=== PATIENT | female | born 1935 | race Caucasian/White ===

== ENCOUNTER 2021-02-05 14:17 | Inpatient (IN) | payer MEDICARE, MEDICAID ==
[~2021-02-05 14:17] MED LIST: Ventolin HFA Inhaler 60 PUFF INHALER ONE; cefTRIAXone\\ROCEPHIN 1 GM VIAL ONE; methylPREDNISolone Sod Succ/PF 125 MG/2 ML VIAL ONE
[2021-02-05] MEDS ORDERED: Azithromycin 500 MG VIAL ONE (15:59)
[2021-02-05] MEDS ORDERED: Senokot S 8.6-50 MG TAB PO PRN (17:08)
[2021-02-05 18:10] LABS: Troponin I Less than 0.010 ng/mL (< 0.028)
[2021-02-05 18:11] LABS: ALT (SGPT) 7 U/L (8-55); AST (SGOT) 18 U/L (5-34); Albumin 3.6 g/dL (3.4-4.8); Alkaline Phosphatase 58 U/L (40-110); Anion Gap 15 mmol/L (10-20); BUN (Urea Nitrogen) 11 mg/dL (9.8-20.1); Bilirubin, Total 0.9 mg/dL (0.2-1.2); Calc. Creatinine Clearance 0 mL/min (70-130); Calcium 9.5 mg/dL (7.8-10.44); Carbon Dioxide 33 mmol/L (23-31); Chloride 98 mmol/L (98-107); Globulin 3.9 g/dL (2.4-3.5); Glucose 132 mg/dL (83-110); Potassium 4.6 mmol/L (3.5-5.1); Protein, Total 7.5 g/dL (5.8-8.1); Sodium 141 mmol/L (136-145)
[2021-02-05 18:13] LABS: Lactic Acid 1.6 mmol/L (0.5-2.2)
[2021-02-05 18:16] LABS: Clarity Clear (Clear); Leukocyte 25 (Negative); Nitrite Negative (Negative); Protein, Urine (Dipstick) 30 mg/dl (Neg-Trace)
[2021-02-05 18:17] LABS: Bilirubin Negative (Negative); Blood, Urine 10 (Negative); Glucose, Urine (Dipstick) Normal (Negative); Ketone, Urine 15 mg/dL (Negative)
[2021-02-05 18:18] LABS: Bacteria/HPF Rare-Few HPF (None Seen); Mucous/LPF Rare LPF (<2+); Squamous Epithelial 0-3 HPF (0-3); Transitional Epithelial 0-3 HPF (None Seen); WBC/HPF 0-3 HPF (0-3)
[2021-02-05 18:24] LABS: Mean Corpuscular HGB CONC 31.1 g/dL (32.0-36.0); Mean Corpuscular Hemoglobin 29.6 pg (27.0-33.0); Mean Corpuscular Volume 95.3 fl (81.6-98.3); Platelet Count 159 10x3/uL (150-450); Red Blood Cell (RBC) Count 4.05 10x6/uL (3.90-5.03); White Blood Cell (WBC) Count 9.9 10x3/uL (3.5-10.5)
[2021-02-05 18:25] LABS: #Monocytes 0.9 10x3/uL (0.0-1.1); %Neutrophils 81.1 % (40.0-75.0); Mean Platelet Volume 9.7 fl (7.4-10.4); RBC Distribution Width 13.7 % (11.5-14.5)
[2021-02-05 18:26] LABS: %Basophils 0.4 % (0.0-2.0); %Lymphocytes 8.5 % (18.0-47.0); %Monocytes 9.5 % (0.0-10.0)
[2021-02-05 20:33] LABS: SARS-CoV-2 NAA Rapid Test Not Detected (NotDetected)
[2021-02-05] MEDS: Apixaban 5 MG TAB PO SCH (21:08)
[2021-02-05 23:19] VITALS: BMI 30.1
[2021-02-06] MEDS: Cepastat Lozenges 1 LOZ PO PRN ×2 (05:11→21:52)
[2021-02-06 07:20] LABS: #Monocytes 0.6 10x3/uL (0.0-1.1); #Neutrophils 9.3 10x3/uL (1.5-8.4); %Basophils 0.3 % (0.0-2.0); %Eosinophils 0.1 % (0.0-6.0); %Lymphocytes 10.7 % (18.0-47.0); %Neutrophils 82.8 % (40.0-75.0); Hemoglobin 11.4 g/dL (12.0-15.5); Mean Corpuscular HGB CONC 32.4 g/dL (32.0-36.0); Mean Corpuscular Hemoglobin 29.8 pg (27.0-33.0); Mean Corpuscular Volume 92.1 fl (81.6-98.3); Mean Platelet Volume 10.4 fl (7.4-10.4); Platelet Count 137 10x3/uL (150-450); RBC Distribution Width 13.9 % (11.5-14.5); Red Blood Cell (RBC) Count 3.82 10x6/uL (3.90-5.03); White Blood Cell (WBC) Count 11.2 10x3/uL (3.5-10.5)
[2021-02-06 07:48] LABS: ALT (SGPT) 10 U/L (8-55); Albumin 3.1 g/dL (3.4-4.8); Alkaline Phosphatase 49 U/L (40-110); Anion Gap 20 mmol/L (10-20); BUN (Urea Nitrogen) 13 mg/dL (9.8-20.1); Bilirubin, Total 0.5 mg/dL (0.2-1.2); Calc. Creatinine Clearance 71 mL/min (70-130); Calcium 9.3 mg/dL (7.8-10.44); Carbon Dioxide 21 mmol/L (23-31); Chloride 107 mmol/L (98-107); Globulin 3.8 g/dL (2.4-3.5); Glucose 114 mg/dL (83-110); Potassium 4.6 mmol/L (3.5-5.1); Protein, Total 6.9 g/dL (5.8-8.1); Sodium 143 mmol/L (136-145)
[2021-02-06 07:51] LABS: AST (SGOT) 23 U/L (5-34)
[2021-02-06] MEDS: Mometasone/Formoterol 200/5 60 PUFF INH SCH ×2 (08:23→19:50)
[2021-02-06] MEDS: Apixaban 5 MG TAB PO SCH (08:25)
[2021-02-06] MEDS: cefTRIAXone\\ROCEPHIN 1 GM in Sodium Chloride 0.9% 100 ML IVPB SCH (08:25)
[2021-02-06] MEDS: Acetaminophen 325 MG TAB PO PRN ×3 (08:28→21:56)
[2021-02-06] MEDS ORDERED: Non-Formulary Medication 1 EACH (Budesonide-Formoterol [Symbicort 160-4.5] 160 MG/4.5 MG A INH SCH (09:00)
[2021-02-06] MEDS: Azithromycin 500 MG in Sodium Chloride 0.9% 250 ML 250 ML IVPB SCH (12:01)
[2021-02-06] MEDS: ALPRAZolam 1 MG TAB PO PRN ×2 (12:01→21:51)
[2021-02-06] MEDS: Atorvastatin Calcium 40 MG TAB PO SCH (21:51)
[2021-02-06] MEDS: Metoprolol Tartrate 50 MG TAB PO SCH (21:51)
[2021-02-06] MEDS: metroNIDAZOLE 500 MG in Premix Bag 1 BAG IVPB SCH (21:52)
[2021-02-07] MEDS: metroNIDAZOLE 500 MG in Premix Bag 1 BAG IVPB SCH ×3 (05:36→22:00)
[2021-02-07] MEDS: Ondansetron PF 4 MG/2 ML Vial IVP PRN (07:09)
[2021-02-07 07:13] LABS: Anion Gap 12 mmol/L (10-20); BUN (Urea Nitrogen) 10 mg/dL (9.8-20.1); Calc. Creatinine Clearance 68 mL/min (70-130); Calcium 9.2 mg/dL (7.8-10.44); Carbon Dioxide 34 mmol/L (23-31); Chloride 106 mmol/L (98-107); Glucose 90 mg/dL (83-110); Potassium 3.6 mmol/L (3.5-5.1); Sodium 148 mmol/L (136-145)
[2021-02-07 07:20] LABS: #Eosinphils 0.2 10x3/uL (0.0-0.5); #Monocytes 0.8 10x3/uL (0.0-1.1); #Neutrophils 6.7 10x3/uL (1.5-8.4); %Basophils 0.4 % (0.0-2.0); %Eosinophils 1.8 % (0.0-6.0); %Monocytes 8.4 % (0.0-10.0); %Neutrophils 73.7 % (40.0-75.0); Hemoglobin 11.3 g/dL (12.0-15.5); Mean Corpuscular HGB CONC 30.1 g/dL (32.0-36.0); Mean Corpuscular Volume 96.7 fl (81.6-98.3); Mean Platelet Volume 9.5 fl (7.4-10.4); Platelet Count 166 10x3/uL (150-450); RBC Distribution Width 14.5 % (11.5-14.5); Red Blood Cell (RBC) Count 3.89 10x6/uL (3.90-5.03); White Blood Cell (WBC) Count 9.1 10x3/uL (3.5-10.5)
[2021-02-07] MEDS: cefTRIAXone\\ROCEPHIN 1 GM in Sodium Chloride 0.9% 100 ML IVPB SCH (07:59)
[2021-02-07] MEDS: ALPRAZolam 1 MG TAB PO PRN ×2 (08:00→16:17)
[2021-02-07] MEDS: Metoprolol Tartrate 50 MG TAB PO SCH ×2 (08:00→20:33)
[2021-02-07] MEDS: Acetaminophen 325 MG TAB PO PRN ×2 (08:44→16:17)
[2021-02-07] MEDS: Clopidogrel Bisulfate 75 MG TAB PO SCH (08:44)
[2021-02-07] MEDS ORDERED: Sodium Bicarbonate 2.5 MEQ/5 ML VIAL ONE (08:52)
[2021-02-07] MEDS ORDERED: Furosemide 40 MG TAB PO SCH (09:00)
[2021-02-07 10:41] LABS: Fluid, pH - Pleural Fld Greater than 7.50 (7.60 - 7.66)
[2021-02-07 11:26] LABS: BF Color Yellow; Body Fluid Source Thoracentesis Fluid; Clarity Hazy (Clear); Tube # EDTA
[2021-02-07] MEDS: Azithromycin 500 MG in Sodium Chloride 0.9% 250 ML 250 ML IVPB SCH (11:44)
[2021-02-07] MEDS: Mometasone/Formoterol 200/5 60 PUFF INH SCH ×2 (11:56→19:46)
[2021-02-07 14:49] LABS: Pleural Fluid, Amylase Less than 30 U/L (Not Available); Pleural Fluid, Glucose 96 mg/dL; Pleural Fluid, LDH 117 U/L (Not Available)
[2021-02-07] MEDS: Atorvastatin Calcium 40 MG TAB PO SCH (20:33)
[2021-02-07] MEDS: Apixaban 5 MG TAB PO SCH (20:33)
[2021-02-08 05:46] LABS: #Basophils 0.1 10x3/uL (0.0-0.2); #Eosinphils 0.5 10x3/uL (0.0-0.5); #Monocytes 0.8 10x3/uL (0.0-1.1); %Basophils 0.6 % (0.0-2.0); %Eosinophils 5.7 % (0.0-6.0); %Monocytes 8.5 % (0.0-10.0); %Neutrophils 66.9 % (40.0-75.0); Hemoglobin 11.3 g/dL (12.0-15.5); Mean Corpuscular HGB CONC 30.1 g/dL (32.0-36.0); Mean Corpuscular Hemoglobin 29.5 pg (27.0-33.0); Mean Corpuscular Volume 98.2 fl (81.6-98.3); Mean Platelet Volume 9.7 fl (7.4-10.4); Platelet Count 174 10x3/uL (150-450); RBC Distribution Width 14.1 % (11.5-14.5); Red Blood Cell (RBC) Count 3.83 10x6/uL (3.90-5.03); White Blood Cell (WBC) Count 8.9 10x3/uL (3.5-10.5)
[2021-02-08 06:00] LABS: Anion Gap 13 mmol/L (10-20); BUN (Urea Nitrogen) 8 mg/dL (9.8-20.1); Calc. Creatinine Clearance 71 mL/min (70-130); Calcium 8.7 mg/dL (7.8-10.44); Carbon Dioxide 35 mmol/L (23-31); Chloride 104 mmol/L (98-107); Glucose 91 mg/dL (83-110); Potassium 3.5 mmol/L (3.5-5.1); Sodium 148 mmol/L (136-145)
[2021-02-08] MEDS: metroNIDAZOLE 500 MG in Premix Bag 1 BAG IVPB SCH ×3 (06:12→21:16)
[2021-02-08] MEDS: Mometasone/Formoterol 200/5 60 PUFF INH SCH ×2 (07:27→19:13)
[2021-02-08] MEDS: Metoprolol Tartrate 50 MG TAB PO SCH ×2 (09:15→21:15)
[2021-02-08] MEDS: cefTRIAXone\\ROCEPHIN 1 GM in Sodium Chloride 0.9% 100 ML IVPB SCH (09:15)
[2021-02-08] MEDS: ALPRAZolam 1 MG TAB PO PRN ×2 (09:16→21:15)
[2021-02-08] MEDS: Apixaban 5 MG TAB PO SCH ×2 (10:45→20:26)
[2021-02-08] MEDS: Azithromycin 500 MG in Sodium Chloride 0.9% 250 ML 250 ML IVPB SCH (10:45)
[2021-02-08] MEDS: Clopidogrel Bisulfate 75 MG TAB PO SCH (10:45)
[2021-02-08] MEDS ORDERED: Furosemide 20 MG/2 ML VIAL SLOW IVP SCH ×2 (11:45→11:59)
[2021-02-08] MEDS: Loperamide HCl 2 MG CAP PO PRN (11:56)
[2021-02-08] MEDS: Furosemide 20 MG/2 ML VIAL SLOW IVP SCH (14:22)
[2021-02-08] MEDS: Atorvastatin Calcium 40 MG TAB PO SCH (20:25)
[2021-02-08] MEDS: Acetaminophen 325 MG TAB PO PRN (20:25)
[2021-02-09] MEDS: Acetaminophen 325 MG TAB PO PRN (00:57)
[2021-02-09] MEDS: Furosemide 20 MG/2 ML VIAL SLOW IVP SCH ×2 (05:57→15:15)
[2021-02-09] MEDS: metroNIDAZOLE 500 MG in Premix Bag 1 BAG IVPB SCH ×3 (05:58→21:47)
[2021-02-09] MEDS: Ondansetron PF 4 MG/2 ML Vial IVP PRN (06:27)
[2021-02-09] MEDS: Mometasone/Formoterol 200/5 60 PUFF INH SCH ×2 (07:47→18:46)
[2021-02-09] MEDS: Clopidogrel Bisulfate 75 MG TAB PO SCH (08:44)
[2021-02-09] MEDS: Metoprolol Tartrate 50 MG TAB PO SCH ×2 (08:44→23:38)
[2021-02-09] MEDS: Apixaban 5 MG TAB PO SCH ×2 (08:44→21:56)
[2021-02-09] MEDS: ALPRAZolam 1 MG TAB PO PRN (08:44)
[2021-02-09 08:50] LABS: #Eosinphils 0.6 10x3/uL (0.0-0.5); #Monocytes 0.5 10x3/uL (0.0-1.1); #Neutrophils 4.4 10x3/uL (1.5-8.4); %Basophils 0.3 % (0.0-2.0); %Lymphocytes 23.3 % (18.0-47.0); %Monocytes 7.5 % (0.0-10.0); %Neutrophils 60.5 % (40.0-75.0); Hemoglobin 12.6 g/dL (12.0-15.5); Mean Corpuscular HGB CONC 30.4 g/dL (32.0-36.0); Mean Corpuscular Hemoglobin 29.4 pg (27.0-33.0); Mean Corpuscular Volume 96.7 fl (81.6-98.3); Mean Platelet Volume 9.2 fl (7.4-10.4); Platelet Count 180 10x3/uL (150-450); RBC Distribution Width 13.8 % (11.5-14.5); Red Blood Cell (RBC) Count 4.29 10x6/uL (3.90-5.03); White Blood Cell (WBC) Count 7.2 10x3/uL (3.5-10.5)
[2021-02-09 09:01] LABS: Anion Gap 15 mmol/L (10-20); BUN (Urea Nitrogen) 10 mg/dL (9.8-20.1); Calc. Creatinine Clearance 68 mL/min (70-130); Calcium 9.2 mg/dL (7.8-10.44); Carbon Dioxide 37 mmol/L (23-31); Chloride 99 mmol/L (98-107); Glucose 94 mg/dL (83-110); Potassium 3.1 mmol/L (3.5-5.1); Sodium 148 mmol/L (136-145)
[2021-02-09] MEDS: cefTRIAXone\\ROCEPHIN 1 GM in Sodium Chloride 0.9% 100 ML IVPB SCH (09:32)
[2021-02-09] MEDS: Azithromycin 500 MG in Sodium Chloride 0.9% 250 ML 250 ML IVPB SCH (10:26)
[2021-02-09] MEDS ORDERED: ACETAMINOPHEN WITH CODEINE PO PRN (11:05)
[2021-02-09] MEDS ORDERED: [UNRECOGNIZED DRUG - OTHER] PO PRN (11:05)
[2021-02-09] MEDS ORDERED: Potassium Chloride 20 MEQ TAB PO SCH (14:00)
[2021-02-09 16:04] LABS: Troponin I Less than 0.010 ng/mL (< 0.028)
[2021-02-09] MEDS: Acetaminophen/Codeine 30-300mg Tablet PO PRN (21:54)
[2021-02-09] MEDS: Atorvastatin Calcium 40 MG TAB PO SCH (21:56)
[2021-02-10 04:28] LABS: #Eosinphils 0.5 10x3/uL (0.0-0.5); #Monocytes 0.6 10x3/uL (0.0-1.1); #Neutrophils 3.8 10x3/uL (1.5-8.4); %Basophils 0.4 % (0.0-2.0); %Eosinophils 7.1 % (0.0-6.0); %Lymphocytes 29.9 % (18.0-47.0); %Monocytes 8.9 % (0.0-10.0); %Neutrophils 53.3 % (40.0-75.0); Hemoglobin 12.1 g/dL (12.0-15.5); Mean Corpuscular HGB CONC 30.4 g/dL (32.0-36.0); Mean Corpuscular Hemoglobin 29.4 pg (27.0-33.0); Mean Corpuscular Volume 96.8 fl (81.6-98.3); Mean Platelet Volume 9.3 fl (7.4-10.4); Platelet Count 171 10x3/uL (150-450); RBC Distribution Width 13.8 % (11.5-14.5); Red Blood Cell (RBC) Count 4.11 10x6/uL (3.90-5.03); White Blood Cell (WBC) Count 7.2 10x3/uL (3.5-10.5)
[2021-02-10 04:46] LABS: Anion Gap 16 mmol/L (10-20); BUN (Urea Nitrogen) 14 mg/dL (9.8-20.1); Calc. Creatinine Clearance 63 mL/min (70-130); Calcium 8.9 mg/dL (7.8-10.44); Carbon Dioxide 35 mmol/L (23-31); Chloride 100 mmol/L (98-107); Glucose 99 mg/dL (83-110); Magnesium 1.6 mg/dL (1.6-2.6); Sodium 148 mmol/L (136-145)
[2021-02-10 04:47] LABS: Potassium 2.9 mmol/L (3.5-5.1)
[2021-02-10] MEDS ORDERED: Potassium Chloride 20 MEQ TAB PO SCH ×2 (05:00→09:00)
[2021-02-10] MEDS: metroNIDAZOLE 500 MG in Premix Bag 1 BAG IVPB SCH ×3 (05:43→21:52)
[2021-02-10] MEDS: ALPRAZolam 1 MG TAB PO PRN ×3 (05:48→21:52)
[2021-02-10] MEDS: Mometasone/Formoterol 200/5 60 PUFF INH SCH ×2 (07:16→19:34)
[2021-02-10] MEDS: Furosemide 20 MG/2 ML VIAL SLOW IVP SCH (08:14)
[2021-02-10] MEDS: Metoprolol Tartrate 50 MG TAB PO SCH ×2 (10:36→21:52)
[2021-02-10] MEDS: Potassium Chloride 20 MEQ TAB PO SCH (10:36)
[2021-02-10] MEDS: Apixaban 5 MG TAB PO SCH ×2 (10:36→21:52)
[2021-02-10] MEDS: Clopidogrel Bisulfate 75 MG TAB PO SCH (10:36)
[2021-02-10] MEDS: cefTRIAXone\\ROCEPHIN 1 GM in Sodium Chloride 0.9% 100 ML IVPB SCH (10:37)
[2021-02-10] MEDS: Azithromycin 500 MG in Sodium Chloride 0.9% 250 ML 250 ML IVPB SCH (12:56)
[2021-02-10 13:29] LABS: Anion Gap 14 mmol/L (10-20); BUN (Urea Nitrogen) 13 mg/dL (9.8-20.1); Calc. Creatinine Clearance 69 mL/min (70-130); Carbon Dioxide 34 mmol/L (23-31); Chloride 103 mmol/L (98-107); Glucose 183 mg/dL (83-110); Magnesium 1.7 mg/dL (1.6-2.6); Potassium 3.8 mmol/L (3.5-5.1); Sodium 147 mmol/L (136-145)
[2021-02-10] MEDS: Loperamide HCl 2 MG CAP PO PRN (14:32)
[2021-02-10] MEDS: Atorvastatin Calcium 40 MG TAB PO SCH (21:52)
[2021-02-11] MEDS: Acetaminophen/Codeine 30-300mg Tablet PO PRN (03:00)
[2021-02-11 04:44] LABS: #Eosinphils 0.5 10x3/uL (0.0-0.5); #Monocytes 0.7 10x3/uL (0.0-1.1); #Neutrophils 3.9 10x3/uL (1.5-8.4); %Basophils 0.4 % (0.0-2.0); %Eosinophils 6.3 % (0.0-6.0); %Lymphocytes 28.3 % (18.0-47.0); %Monocytes 9.7 % (0.0-10.0); %Neutrophils 54.6 % (40.0-75.0); Hemoglobin 11.4 g/dL (12.0-15.5); Mean Corpuscular HGB CONC 30.1 g/dL (32.0-36.0); Mean Corpuscular Hemoglobin 28.9 pg (27.0-33.0); Mean Corpuscular Volume 96.2 fl (81.6-98.3); Mean Platelet Volume 9.4 fl (7.4-10.4); Platelet Count 163 10x3/uL (150-450); RBC Distribution Width 14.1 % (11.5-14.5); Red Blood Cell (RBC) Count 3.94 10x6/uL (3.90-5.03); White Blood Cell (WBC) Count 7.1 10x3/uL (3.5-10.5)
[2021-02-11 04:59] LABS: ALT (SGPT) 11 U/L (8-55); AST (SGOT) 19 U/L (5-34); Albumin 2.8 g/dL (3.4-4.8); Alkaline Phosphatase 43 U/L (40-110); Anion Gap 13 mmol/L (10-20); BUN (Urea Nitrogen) 11 mg/dL (9.8-20.1); Bilirubin, Total 0.4 mg/dL (0.2-1.2); Calc. Creatinine Clearance 71 mL/min (70-130); Calcium 8.9 mg/dL (7.8-10.44); Carbon Dioxide 31 mmol/L (23-31); Chloride 105 mmol/L (98-107); Glucose 109 mg/dL (83-110); Magnesium 1.6 mg/dL (1.6-2.6); Potassium 3.5 mmol/L (3.5-5.1); Protein, Total 5.8 g/dL (5.8-8.1); Sodium 145 mmol/L (136-145)
[2021-02-11] MEDS: metroNIDAZOLE 500 MG in Premix Bag 1 BAG IVPB SCH (05:45)
[2021-02-11] MEDS: Mometasone/Formoterol 200/5 60 PUFF INH SCH (06:50)
[2021-02-11] MEDS: Clopidogrel Bisulfate 75 MG TAB PO SCH (10:18)
[2021-02-11] MEDS: Metoprolol Tartrate 50 MG TAB PO SCH (10:18)
[2021-02-11] MEDS: Apixaban 5 MG TAB PO SCH (10:18)
[2021-02-11] MEDS: ALPRAZolam 1 MG TAB PO PRN (10:18)
[2021-02-11] MEDS: Potassium Chloride 20 MEQ TAB PO SCH (10:18)
[2021-02-11] MEDS: cefTRIAXone\\ROCEPHIN 1 GM in Sodium Chloride 0.9% 100 ML IVPB SCH (10:40)
[2021-02-11] MEDS: Azithromycin 500 MG in Sodium Chloride 0.9% 250 ML 250 ML IVPB SCH (12:01)
[2021-02-11 15:30] VITALS: BP 137/75; TEMP 97.5
[2021-02-13 15:41] LABS: Fungus Stain Final report (.)
== END 2021-02-11 16:58 | disposition home or self-care (01) | DRG 193 ==
LOC: SUATTDRO 14:17 → CSHERS 14:17 → CSHTELE 20:04
PROVIDERS: ADMIT Internal Medicine; ATTEND Internal Medicine
PROC: 0W993ZZ Drainage of Right Pleural Cavity, Percutaneous Approach (ICD-10-PCS; principal; 2021-02-07)
DX: J18.9 Pneumonia, unspecified organism (principal); J96.01 Acute respiratory failure with hypoxia; J44.0 Chronic obstructive pulmonary disease with (acute) lower respiratory infection; J90 Pleural effusion, not elsewhere classified; I50.42 Chronic combined systolic (congestive) and diastolic (congestive) heart failure; E87.0 Hyperosmolality and hypernatremia; Z20.822 Contact with and (suspected) exposure to COVID-19; E78.5 Hyperlipidemia, unspecified; I25.10 Atherosclerotic heart disease of native coronary artery without angina pectoris; I48.0 Paroxysmal atrial fibrillation; I11.0 Hypertensive heart disease with heart failure; R13.10 Dysphagia, unspecified; E87.6 Hypokalemia; E11.9 Type 2 diabetes mellitus without complications; Z85.118 Personal history of other malignant neoplasm of bronchus and lung; Z88.3 Allergy status to other anti-infective agents; Z79.01 Long term (current) use of anticoagulants; Z79.899 Other long term (current) drug therapy; Z86.16 Personal history of COVID-19; Z99.81 Dependence on supplemental oxygen
CPT/HCPCS: 36415; 71045; 71275; 76942; 80048; 80053; 81003; 81015; 82150; 82945; 83605; 83615; 83735; 83880; 83986; 84157; 84484; 85025; 85379; 87040; 87070; 87086; 87116; 87205; 87206; 88112; 88305; 89051; 93005; 93010; 94760; 96365; J0456; J0696; J1940; J2405; J2930; J3490; J7050; U0002

== ENCOUNTER 2022-06-24 09:20 | Emergency (ER) | payer OTHER, MEDICAID ==
[2022-06-24 10:28] LABS: #Eosinphils 0.2 10x3/uL (0.0-0.5); #Monocytes 0.5 10x3/uL (0.0-1.1); #Neutrophils 6.6 10x3/uL (1.5-8.4); %Basophils 0.3 % (0.0-2.0); %Eosinophils 2.3 % (0.0-6.0); %Lymphocytes 17.9 % (18.0-47.0); %Monocytes 5.6 % (0.0-10.0); %Neutrophils 73.7 % (40.0-75.0); Hemoglobin 10.9 g/dL (12.0-15.5); Mean Corpuscular HGB CONC 30.2 g/dL (32.0-36.0); Mean Corpuscular Hemoglobin 29.5 pg (27.0-33.0); Mean Corpuscular Volume 97.8 fl (81.6-98.3); Platelet Count 159 10x3/uL (150-450); RBC Distribution Width 13.6 % (11.5-14.5); Red Blood Cell (RBC) Count 3.69 10x6/uL (3.90-5.03)
[2022-06-24 10:35] LABS: ALT (SGPT) 12 U/L (8-55); AST (SGOT) 22 U/L (5-34); Alkaline Phosphatase 77 U/L (40-110); Anion Gap 13 mmol/L (10-20); BUN (Urea Nitrogen) 16 mg/dL (9.8-20.1); Calc. Creatinine Clearance 0 mL/min (70-130); Calcium 9.6 mg/dL (7.8-10.44); Carbon Dioxide 36 mmol/L (23-31); Chloride 98 mmol/L (98-107); Estimated GFR 57; Globulin 3.5 g/dL (2.4-3.5); Glucose 112 mg/dL (83-110); Potassium 4.2 mmol/L (3.5-5.1); Protein, Total 7.5 g/dL (5.8-8.1); Sodium 143 mmol/L (136-145)
[2022-06-24] MEDS ORDERED: Acetaminophen/Codeine 30-300mg Tablet ONE (12:18)
[2022-06-24] MEDS ORDERED: Lorazepam 2 MG/ML VIAL ONE (15:41)
[2022-06-24 16:40] LABS: SARS-CoV-2 NAA Rapid Test Not Detected (NotDetected)
[2022-06-24 16:55] LABS: Bilirubin Negative (Negative); Blood, Urine Trace (Negative); Clarity Clear (Clear); Glucose, Urine (Dipstick) Negative (Negative); Ketone, Urine Trace mg/dL (Negative); Leukocyte Negative (Negative); Nitrite Negative (Negative); Protein, Urine (Dipstick) Negative (Neg-Trace); Specific Gravity, Urine 1.015 (1.005-1.030); Urobilinogen 0.2 mg/dL (Less than 2); pH, Urine 7.5 (5.0-9.0)
[2022-06-24 17:01] LABS: Bacteria/HPF Rare-Few HPF (None Seen); RBC/HPF 0-3 HPF (0-3); Squamous Epithelial 0-3 HPF (0-3); Transitional Epithelial 0-3 HPF (None Seen); WBC/HPF None Seen HPF (0-3)
== END 2022-06-24 18:20 | disposition home or self-care (01) ==
LOC: CSHERS 09:20
DX: E86.9 Volume depletion, unspecified (principal); R42 Dizziness and giddiness; Z20.822 Contact with and (suspected) exposure to COVID-19; E78.5 Hyperlipidemia, unspecified; Z87.891 Personal history of nicotine dependence; I11.0 Hypertensive heart disease with heart failure; I50.9 Heart failure, unspecified
CPT/HCPCS: 0240U; 71045; 80053; 83880; 84484; 85025; 93005; 99284; 81003; 81015; J2060